=== PATIENT | male | born 1980 | race Caucasian/White ===

== ENCOUNTER → 2019-08-06 | Outpatient (CLI) | payer SELFPAY ==
[~2019-08-06] MED LIST: ASPI81CH PO; ASPI81EC PO; Prilosec20 MG PO
[2019-08-06 08:56] LABS: Source, Urine Clean Catch
[2019-08-06 10:19] LABS: Bilirubin, Urine Neg (Neg); Blood, Urine Neg (Neg); Glucose Qualitative, Urine Neg (Neg); Ketones, Urine Neg (Neg); Leukocyte Esterase, Urine Neg (Neg); Nitrite, Urine Neg (Neg); Protein, Urine Neg (Neg); Specific Gravity, Urine 1.015 (1.003-1.022); Urobilinogen, Urine NORM (Normal)
[2019-08-06 11:06] LABS: Appearance, Urine Clear (Clear); Color, Urine Yellow (P-Yellow)
== END | disposition home or self-care (01) ==
LOC: LAB 08:39 → LAB SHORT 08:54 → LAB 08:54
PROVIDERS: Internal Medicine
DX: R30.0 Dysuria (principal)
CPT/HCPCS: 81003

== ENCOUNTER → 2020-11-08 | Outpatient (CLI) | payer BC | END | disposition home or self-care (01) | LOC: LAB 08:30 → LAB SHORT 08:30 | DX: R10.13 Epigastric pain (principal) | CPT/HCPCS: 87338 ==